=== PATIENT | female | born 1955 ===

== ENCOUNTER 2017-05-27 13:48 | Emergency (ER) | payer MEDICAID ==
[2017-05-27 13:48] VITALS: BMI 24.5
[2017-05-27 14:17] VITALS: RESP 18; TEMP 97.8; O2SAT 100
[2017-05-27] MEDS ORDERED: Sodium Chloride 0.9% 1,000 ML IV ONE (14:27)
--- NOTE | 2017-05-27 14:36 | C.PDOC ---
History Of Present Illness 61 y/o female presents to ED sent by Dr. Ruggiero for RUQ abdominal pain for months intermittently. Patient was sent for further evaluation and denies fever , chills, n/v/d or any other complaints at this time. Time Seen by Provider: 05/27/17 14:13 Chief Complaint (Nursing): Abdominal Pain History Per: Patient History/Exam Limitations: no limitations Onset/Duration Of Symptoms: Intermittent Episodes Current Symptoms Are (Timing): Still Present Past Medical History Reviewed: Historical Data, Nursing Documentation, Vital Signs Vital Signs: Last Vital Signs Temp 97.8 F 05/27/17 17:02 Pulse 56 L 05/27/17 17:02 Resp 18 05/27/17 17:02 BP 168/92 H 05/27/17 17:02 Pulse Ox 100 05/27/17 17:02 - Medical History PMH: Anxiety, Arthritis, Depression, Diverticulitis, Gastrointestinal Ulcer, Hiatal Hernia, HTN, Hypothyroidism, Migraine - [facility] Procedures ANESTH INJECT-SPIN CANAL (08/01/13) INJECT STEROID (08/01/13) INJECT/INFUSE NEC (01/25/15) SPINAL CANAL INJECT NEC (08/01/13) Family History: States: No Known Family Hx - Social History Hx Alcohol Use: No Hx Substance Use: No - Immunization History Hx Tetanus Toxoid Vaccination: No Hx Influenza Vaccination: No Hx Pneumococcal Vaccination: No Review Of Systems Except As Marked, All Systems Reviewed And Found Negative. Constitutional: Negative for: Fever, Chills Gastrointestinal: Positive for: Abdominal Pain. Negative for: Nausea, Vomiting , Diarrhea Genitourinary: Negative for: Dysuria Musculoskeletal: Negative for: Back Pain Skin: Negative for: Rash Physical Exam - Physical Exam Appears: Non-toxic, No Acute Distress Skin: Normal Color, Warm, No Rash Head: Atraumatic Oral Mucosa: Moist Neck: Supple Chest: Symmetrical Cardiovascular: Rhythm Regular Respiratory: Normal Breath Sounds, No Rales, No Rhonchi, No Wheezing Gastrointestinal/Abdominal: Tenderness (RUQ ), No Guarding, No Rebound Neurological/Psych: Oriented x3, Normal Speech, Normal Cognition ED Course And Treatment - Laboratory Results Result Diagrams: 05/27/17 14:55 05/27/17 14:55 Lab Interpretation: No Acute Changes O2 Sat by Pulse Oximetry: 100 (RA) Pulse Ox Interpretation: Normal - CT Scan/US US abdomen Other Rad Studies (CT/US): Interpreted By Me, Read By Radiologist, Radiology Report Reviewed CT/US Interpretation: HISTORY: Pain. COMPARISON: None. TECHNIQUE: Sonographic evaluation of the right upper quadrant of the abdomen. FINDINGS: LIVER: Measures 12.3 cm in length. Normal echogenicity of the liver parenchyma. No mass. No intrahepatic bile duct dilatation. GALLBLADDER: Gallbladder is distended but otherwise appears unremarkable. No gallstones. COMMON BILE DUCT: Measures 3.4 mm. No stones. No dilatation. PANCREAS: The body of pancreas is unremarkable remainder obscured by overlying bowel gas. RIGHT KIDNEY: Measures 8.3 cm in length. Normal echogenicity. No calculus, mass , or hydronephrosis. Small simple cyst identified at the mid to lower pole right kidney avascular on color Doppler ultrasound with sharp peripheral margins and no septation or nodularity related. It measures 2.0 x 2.5 x 2.4 cm. AORTA: No aneurysmal dilatation. IVC: Unremarkable. OTHER FINDINGS: None . IMPRESSION: A distended gallbladder is appreciate without mural thickening, cholelithiasis or pericholecystic fluid collection. There is no sonographic Vu's sign either. Partial imaging of the pancreas. 2.5 cm simple cyst mid to lower pole right kidney. Progress Note: Treated with IVF NSS, morphine and benadryl. Case discusssed and patient evaluated by surgical training specialist who requests discharge. On re- evaluation feeling better abdomen soft Reassessment Condition: Improved Medical Decision Making Medical Decision Making: Plan: * Labs * US abdomen Disposition Counseled Patient/Family Regarding: Studies Performed, Diagnosis, Need For Followup, Rx Given - Disposition Referrals: Zeb Valiente MD [Staff Provider] - Disposition: HOME/ ROUTINE Disposition Time: 17:00 Condition: STABLE Additional Instructions: Return to ED if any increase symptoms Prescriptions: traMADol [Ultram] 50 mg PO TID PRN #10 tab PRN Reason: Pain, Moderate (4-7) Instructions: Abdominal Pain (ED) Forms: [facility] (Croatian) - POA Present On Arrival: None - Clinical Impression Clinical Impression: Abdominal pain, Nausea - Scribe Statement The provider has reviewed the documentation as recorded by the Nicolle Charles All medical record entries made by the Nicolle were at my direction and personally dictated by me. I have reviewed the chart and agree that the record accurately reflects my personal performance of the history, physical exam, medical decision making, and the department course for this patient. I have also personally directed, reviewed, and agree with the discharge instructions and disposition.
[2017-05-27] MEDS ORDERED: Sodium Chloride 0.9% 1,000 ML ONE (14:55)
[2017-05-27 15:00] LABS: BASO # 0.1 K/uL (0.0-0.2); BASO % 0.9 % (0.0-2.0); EOS # 0.1 K/uL (0.0-0.7); HEMATOCRIT 40.3 % (34.0-47.0); LYMPH # 2.9 K/uL (1.0-4.3); LYMPH % 36.3 % (20.0-40.0); MEAN CELL VOLUME 95.6 fL (81.0-99.0); MEAN CORPUSCULAR HGB CONC 34.5 g/dL (33.0-37.0); MEAN PLATELET VOLUME 6.8 fL (7.2-11.7); MONO # 0.4 K/uL (0.0-0.8); MONO % 4.6 % (0.0-10.0); NRBC % 0.1 % (0.0-2.0); RED CELL DISTRIBUTION WIDTH 13.7 % (11.5-14.5)
[2017-05-27 15:04] LABS: URINE BILIRUBIN NEGATIVE (NEGATIVE); URINE COLOR Straw (YELLOW); URINE GLUCOSE (UA) NORMAL (Normal); URINE KETONE NEGATIVE (NEGATIVE); URINE LEUKOCYTE ESTERASE NEG Leu/uL (Negative); URINE PROTEIN NEGATIVE (NEGATIVE); URINE UROBILINOGEN NORMAL mg/dL (0.2-1.0); WBC URINE < 1 /hpf (0-5)
[2017-05-27 15:11] LABS: RBC URINE 4 /hpf (0-3); URINE BLOOD 1+ (NEGATIVE)
[2017-05-27 15:16] LABS: CHLORIDE 105 mmol/L (98-107)
[2017-05-27 15:17] LABS: POTASSIUM 3.8 mmol/L (3.6-5.2); SODIUM 141 mmol/L (132-148)
[2017-05-27 15:19] LABS: ALB/GLOB RATIO 1.1 (1.0-2.1); ALKALINE PHOSPHATASE 161 U/L (38-126); AST/SGOT 28 U/L (14-36); BILIRUBIN,TOTAL 0.6 mg/dL (0.2-1.3); BLOOD UREA NITROGEN 12 mg/dL (7-17); CARBON DIOXIDE 19 mmol/L (22-30); GFR AFRICAN-AMERICAN > 60; TOTAL PROTEIN 8.8 g/dL (6.3-8.3)
[2017-05-27 15:20] LABS: ALT/SGPT 44 U/L (9-52); CALCIUM 9.6 mg/dl (8.6-10.4); GLUCOSE,RANDOM 91 mg/dL (65-105)
--- NOTE | 2017-05-27 15:33 | US ---
HISTORY: Pain COMPARISON: None. TECHNIQUE: Sonographic evaluation of the right upper quadrant of the abdomen. FINDINGS: LIVER: Measures 12.3 cm in length. Normal echogenicity of the liver parenchyma. No mass. No intrahepatic bile duct dilatation. GALLBLADDER: Gallbladder is distended but otherwise appears unremarkable. No gallstones. COMMON BILE DUCT: Measures 3.4 mm. No stones. No dilatation. PANCREAS: The body of pancreas is unremarkable remainder obscured by overlying bowel gas. RIGHT KIDNEY: Measures 8.3 cm in length. Normal echogenicity. No calculus, mass, or hydronephrosis. Small simple cyst identified at the mid to lower pole right kidney avascular on color Doppler ultrasound with sharp peripheral margins and no septation or nodularity related. It measures 2.0 x 2.5 x 2.4 cm. AORTA: No aneurysmal dilatation. IVC: Unremarkable. OTHER FINDINGS: None . IMPRESSION: A distended gallbladder is appreciate without mural thickening, cholelithiasis or pericholecystic fluid collection. There is no sonographic Vu's sign either. Partial imaging of the pancreas. 2.5 cm simple cyst mid to lower pole right kidney.
[2017-05-27 17:03] VITALS: BP 168/92; PULSE 56
== END 2017-05-27 17:13 | disposition home or self-care (01) ==
LOC: C.ER 13:48
DX: R10.11 Right upper quadrant pain (principal); R11.0 Nausea
CPT/HCPCS: 76705; 80053; 81001; 83690; 85025; 96361; 96374; 99284; J2270; J7040